=== PATIENT | male | born 1985 | race Two or more races ===

== ENCOUNTER 2018-07-12 21:26 | Emergency (ER) | payer MEDICAID, OTHER ==
[~2018-07-12] VITALS: Ht 172.7 cm; Wt 72.6 kg
--- NOTE | 2018-07-12 22:43 | NUR ---
Called Radiology for copy of Xray
--- NOTE | 2018-07-12 23:09 | NUR ---
Patient discharged to home in stable conditon. Written and verbal after care instructions given. Patient verbalizes understanding of instructions. Pt. d/c w/ prescription per MD order, d/c paper signed, all belongings w/ pt., ambulated out of ED w/ steady gait, left with girlfriend in private vehicle before images were able to be given, NAD, ID band removed,
== END 2018-07-12 23:12 | disposition home or self-care (01) ==
LOC: ER 21:28
DX: S62.314A Displaced fracture of base of fourth metacarpal bone, right hand, initial encounter for closed fracture (principal); L03.012 Cellulitis of left finger; F17.200 Nicotine dependence, unspecified, uncomplicated; Y04.2XXA Assault by strike against or bumped into by another person, initial encounter; Y93.89 Activity, other specified; Y92.89 Other specified places as the place of occurrence of the external cause; Y99.8 Other external cause status
CPT/HCPCS: 73130; A4663

== ENCOUNTER 2018-10-28 16:57 | Emergency (ER) | payer MEDICAID ==
[~2018-10-28] VITALS: Ht 172.7 cm; Wt 68.0 kg
[2018-10-28] MEDS ORDERED: LIDOCAINE HCL 1% 20 ML VIAL ONE (17:28)
[2018-10-28] MEDS ORDERED: LIDOCAINE HCL 1% 20 ML VIAL IJ ONE (17:30)
--- NOTE | 2018-10-28 17:58 | NUR ---
Patient discharged to home in stable conditon. Written and verbal after care instructions given to patient. Patient verbalizes understanding of instructions.
== END 2018-10-28 18:00 | disposition home or self-care (01) ==
LOC: ER 16:57
DX: M70.22 Olecranon bursitis, left elbow (principal); F17.200 Nicotine dependence, unspecified, uncomplicated; Y93.89 Activity, other specified
CPT/HCPCS: 20605; 99284; J3490; A4663

== ENCOUNTER 2018-11-06 19:09 | Emergency (ER) | payer MEDICAID ==
[~2018-11-06] VITALS: Ht 172.7 cm; Wt 70.3 kg
--- NOTE | 2018-11-06 19:26 | NUR ---
DR. STONE AT BEDSIDE FOR MSE.
[2018-11-06] MEDS ORDERED: IBUPROFEN 600 MG TABLET PO ONE (19:30)
[2018-11-06] MEDS ORDERED: IBUPROFEN 600 MG TABLET ONE (19:34)
--- NOTE | 2018-11-06 19:38 | NUR ---
Patient discharged to home in stable conditon. Written and verbal after care instructions given. Patient verbalizes understanding of instructions. PATIENT LEFT WITH STABLE GAIT.
[2018-11-06 19:42] VITALS: BP 117/75
== END 2018-11-06 19:50 | disposition home or self-care (01) ==
LOC: ER 19:10
DX: M70.22 Olecranon bursitis, left elbow (principal); F17.290 Nicotine dependence, other tobacco product, uncomplicated
CPT/HCPCS: A4663

== ENCOUNTER 2019-01-08 23:40 | Emergency (ER) | payer MEDICAID ==
[~2019-01-08] VITALS: Ht 172.7 cm; Wt 72.6 kg
--- NOTE | 2019-01-09 00:19 | NUR ---
patient returned from CT scan.
--- NOTE | 2019-01-09 00:35 | NUR ---
Patient discharged to home in stable conditon. Written and verbal after care instructions given. Patient verbalizes understanding of instructions. personal belongings and exit care taken home with patient. Patient is ambulatory and escorted with girlfriend. Girlfriend stated that she will be driving him home. Patient is alert and oriented x4.
[2019-01-09 00:38] VITALS: BP 115/72
== END 2019-01-09 00:34 | disposition home or self-care (01) ==
LOC: ER 23:44
DX: S09.90XA Unspecified injury of head, initial encounter (principal); F17.200 Nicotine dependence, unspecified, uncomplicated; W22.8XXA Striking against or struck by other objects, initial encounter; Y93.89 Activity, other specified; Y92.89 Other specified places as the place of occurrence of the external cause; Y99.8 Other external cause status
CPT/HCPCS: 70450; A4663

== ENCOUNTER 2020-03-15 19:42 | Emergency (ER) | payer MEDICAID ==
[~2020-03-15] VITALS: Ht 172.7 cm; Wt 70.3 kg
--- NOTE | 2020-03-15 20:48 | NUR ---
Patient discharged to home in stable condition. Written and verbal after care instructions given. Patient verbalizes understanding of instructions. Stressed follow up or return to ER for worsening s/s. Ambulated from ER with stable gait. All belongings with patient. VSS
[2020-03-15 20:49] VITALS: BP 121/80
[2020-03-15] MEDS ORDERED: LIDOCAINE HCL 2% 20 ML VIAL TP ONE (21:00)
== END 2020-03-15 20:49 | disposition home or self-care (01) ==
LOC: ER 19:43
DX: S01.01XA Laceration without foreign body of scalp, initial encounter (principal); Y08.89XA Assault by other specified means, initial encounter; Y92.89 Other specified places as the place of occurrence of the external cause
CPT/HCPCS: 12002; 99283; J3490; A4663

== ENCOUNTER 2020-03-20 00:24 | Emergency (ER) | payer SELFPAY ==
--- NOTE | 2020-03-20 00:30 | NUR ---
PATIENT WAS CALLED TO BE TRIAGED BUT WAS NOT PRESENT.
--- NOTE | 2020-03-20 00:59 | NUR ---
PATIENT LEFT WITHOUT BEING SEEN OR TRIAGED.
== END 2020-03-20 01:03 | disposition left against medical advice (07) ==
LOC: ER 00:26
DX: Z75.3 Unavailability and inaccessibility of health-care facilities (principal)

== ENCOUNTER 2020-03-24 23:59 | Emergency (ER) | payer MEDICAID ==
[~2020-03-24] VITALS: Ht 170.2 cm; Wt 72.6 kg
--- NOTE | 2020-03-25 00:11 | NUR ---
DR Marie into eval patient.
--- NOTE | 2020-03-25 00:13 | NUR ---
DR Marie into remove ck on patient's head.
--- NOTE | 2020-03-25 00:26 | NUR ---
Patient discharged to home in stable condition. Written and verbal after care instructions given. Patient verbalizes understanding of instructions. Stressed follow up or return to ER for worsening s/s.
[2020-03-25 00:29] VITALS: BP 120/78
== END 2020-03-25 00:30 | disposition home or self-care (01) ==
LOC: ER 03-25 00:01
DX: S01.01XD Laceration without foreign body of scalp, subsequent encounter (principal); X58.XXXD Exposure to other specified factors, subsequent encounter
CPT/HCPCS: A4663

== ENCOUNTER 2021-04-29 23:53 | Emergency (ER) | payer MEDICAID ==
[~2021-04-29] VITALS: Ht 170.2 cm; Wt 83.9 kg
[2021-04-30] MEDS ORDERED: LIDOCAINE HCL 2% 20 ML VIAL IJ ONE (00:45)
--- NOTE | 2021-04-30 01:30 | NUR ---
Patient discharged to home in stable condition via private vehicle. Written and verbal after care instructions given. Patient verbalizes understanding of instructions. Stressed follow up or return to ER for worsening s/s. VSS.
[2021-04-30 01:46] VITALS: BP 113/67
== END 2021-04-30 01:40 | disposition home or self-care (01) ==
LOC: ER 23:56
DX: S61.411A Laceration without foreign body of right hand, initial encounter (principal); X99.0XXA Assault by sharp glass, initial encounter; Y92.89 Other specified places as the place of occurrence of the external cause; F10.20 Alcohol dependence, uncomplicated; F43.10 Post-traumatic stress disorder, unspecified; M21.941 Unspecified acquired deformity of hand, right hand; S62.304S Unspecified fracture of fourth metacarpal bone, right hand, sequela; X58.XXXS Exposure to other specified factors, sequela
CPT/HCPCS: 12001; 99282; J3490; A4217; A4663

== ENCOUNTER 2022-02-17 15:09 | Emergency (ER) | payer MEDICAID ==
[~2022-02-17] VITALS: Ht 172.7 cm; Wt 74.8 kg
--- NOTE | 2022-02-17 15:42 | NUR ---
PT IS IN ROOM #3. DR PARRISH EVALUATED THE PT.
--- NOTE | 2022-02-17 17:06 | NUR ---
PT WAS D/C'd TO HOME. D/C INSTRUCTIONS GIVEN TO THE PT BY DR PARRISH.
[2022-02-17 17:07] VITALS: BP 142/87
== END 2022-02-17 17:07 | disposition home or self-care (01) ==
LOC: ER 15:09
DX: J06.9 Acute upper respiratory infection, unspecified (principal); Z20.822 Contact with and (suspected) exposure to COVID-19; J45.909 Unspecified asthma, uncomplicated; F10.20 Alcohol dependence, uncomplicated; Z86.59 Personal history of other mental and behavioral disorders
CPT/HCPCS: 99283; 87426; 87400; 36415; U0003; C9803; A4663

== ENCOUNTER 2022-10-25 14:48 | Emergency (ER) | payer MEDICAID ==
[~2022-10-25] VITALS: Ht 172.7 cm; Wt 74.8 kg
== END 2022-10-25 15:32 | disposition home or self-care (01) ==
LOC: ER 14:48
DX: S06.0X0A Concussion without loss of consciousness, initial encounter (principal); J45.909 Unspecified asthma, uncomplicated; W22.8XXA Striking against or struck by other objects, initial encounter; Y93.89 Activity, other specified; Y92.89 Other specified places as the place of occurrence of the external cause; Y99.8 Other external cause status
CPT/HCPCS: A4663

== ENCOUNTER 2024-10-31 00:05 | Emergency (ER) | payer MEDICAID, MEDICARE ==
[~2024-10-31] VITALS: Ht 170.2 cm; Wt 77.1 kg
[2024-10-31] MEDS ORDERED: OXYCODONE/APAP 5-325 MG TABLET ONE (00:20)
[2024-10-31] MEDS ORDERED: ONDANSETRON ODT 4 MG TAB.RAPDIS ONE (00:20)
[2024-10-31] MEDS ORDERED: PENICILLIN G BENZATHINE 2.4 MMU/4 ML DISP.SYRIN IM ONE (00:21)
[2024-10-31] MEDS ORDERED: ONDA4TAB11 PO (00:26)
[2024-10-31] MEDS ORDERED: HYDR-4209 PO (00:26)
[2024-10-31] MEDS: PENICILLIN G BENZATHINE 2.4 MMU/4 ML DISP.SYRIN IM ONE (00:28)
[2024-10-31] MEDS: OXYCODONE/APAP 5-325 MG TABLET PO ONE (00:29)
[2024-10-31] MEDS: ONDANSETRON ODT 4 MG TAB.RAPDIS SL ONE (00:29)
[2024-10-31 00:44] VITALS: BP 121/75; O2SAT 98
== END 2024-10-31 00:45 | disposition home or self-care (01) ==
LOC: ER 00:05
DX: K08.89 Other specified disorders of teeth and supporting structures (principal); F17.210 Nicotine dependence, cigarettes, uncomplicated; J45.909 Unspecified asthma, uncomplicated; Z88.7 Allergy status to serum and vaccine
CPT/HCPCS: 99283; 99406; 96372; J0561; A4606; A4663; Q0162